=== PATIENT | female | born 1995 | race African-American/Black ===

== ENCOUNTER → 2023-11-18 | Outpatient (REF) ==
[2023-11-19 06:09] LABS: HERPES ZOSTER, VARICELLA IgG 353 index (Immune >165); RUBEOLA IgG ANTIBODY <13.5 AU/mL (Immune >16.4)
== END ==
LOC: M LAB 12:47
PROVIDERS: ATTEND Nurse Practitioner Adult Health
DX: Z01.84 Encounter for antibody response examination (principal)

== ENCOUNTER 2024-03-30 10:04 | Day surgery (SDC) | payer OTHER ==
[~2024-03-30] VITALS: Ht 170.2 cm; Wt 75.7 kg
[~2024-03-30 10:04] MED LIST: ACETAMINOPHEN 1000MG 100ML IV BAG As Ordered ONE; KETOROLAC 60MG 2ML VIAL As Ordered ONE; LIDOCAINE 2% 100MG/5ML SDV (FOR ANES.) As Ordered ONE; MIDAZOLAM INJ 2MG/2ML VIAL As Ordered ONE; ONDANSETRON 4MG 2ML VIAL As Ordered ONE; fentaNYL 100 MCG/2 ML INJECTION As Ordered ONE; propofoL 200 MG/20 ML VIAL As Ordered ONE
[2024-03-30] MEDS: LR 1,000 ML IV SCH (11:04)
[2024-03-30 11:05] LABS: HEMATOCRIT 41.8 % (36.0-47.0); HEMOGLOBIN 13.4 g/dl (12.0-15.5)
[2024-03-30] MEDS ORDERED: SCOPOLAMINE 1MG TRANSDERMAL PATCH As Ordered ONE (13:45)
[2024-03-30] MEDS ORDERED: IODINE STRONG SOLN 15ML BTL As Ordered ONE (13:46)
[2024-03-30] MEDS: LIDOCAINE W/EPINEPHRINE 1% 20ML VIAL As Ordered ONE (14:29)
[2024-03-30] MEDS ORDERED: ONDANSETRON 4MG 2ML VIAL IV PRN (14:40)
[2024-03-30] MEDS ORDERED: MORPHINE 2 MG/ML 1ML VIAL IV PRN (14:40)
[2024-03-30] MEDS: fentaNYL 100 MCG/2 ML INJECTION IV PRN (15:02)
[2024-03-30] MEDS: oxyCODONE 5MG TAB PO PRN (15:09)
[2024-03-30 15:40] VITALS: BP 130/74; TEMP 98.6; O2SAT 99
== END 2024-03-30 15:46 | disposition home or self-care (01) ==
LOC: M SDC 10:04
PROVIDERS: ATTEND Obstetrics & Gynecology
DX: N87.1 Moderate cervical dysplasia (principal); G43.909 Migraine, unspecified, not intractable, without status migrainosus
CPT/HCPCS: 36415; 57460; 81025; 85014; 85018; 88307; J0131; J1100; J1885; J2250; J2405; J3010